=== PATIENT | female | born 1980 | race Two or more races ===

== ENCOUNTER 2018-03-01 17:59 | Emergency (ER) | payer OTHER | END 2018-03-01 19:38 | disposition home or self-care (01) | LOC: E/R 19:38 | DX: J30.2 Other seasonal allergic rhinitis (principal) | CPT/HCPCS: 99283 ==

== ENCOUNTER 2018-04-07 05:44 | Day surgery (SDC) | payer OTHER ==
[2018-04-07] MEDS ORDERED: MIDAZOLAM 1 MG/ML 2 ML INJ (07:49)
[2018-04-07] MEDS ORDERED: FENTAnyl 50 MCG/ML VIAL (07:49)
== END 2018-04-07 10:38 | disposition home or self-care (01) ==
LOC: GIL 05:44
DX: K29.50 Unspecified chronic gastritis without bleeding (principal)
CPT/HCPCS: 43239; 84703; 88305; 88312

== ENCOUNTER 2018-10-22 09:18 | Emergency (ER) | payer OTHER ==
[2018-10-22] MEDS: SOD CHLORIDE 0.9% 1,000 ML IV (10:02)
[2018-10-22] MEDS: LIDOCAINE/MYLANTA 40 ML BTL PO (10:03)
[2018-10-22] MEDS: KETOROLAC 30 MG INJ IV (10:03)
[2018-10-22] MEDS: BELLADONNA/PHENOBARBITAL TAB PO (10:03)
[2018-10-22 10:06] LABS: ADD MAN DIFF? NO
[2018-10-22 10:10] LABS: ABNORMAL IP MESSAGE 1; BASOPHIL # 0.1 10^3/ul (0.0-0.1); BASOPHILS % 0.9 % (0.0-2.0); EOSINOPHILS # 0.3 10^3/ul (0.0-0.5); EOSINOPHILS % 4.6 % (0.0-7.0); HEMATOCRIT 31.4 % (37.0-47.0); HEMOGLOBIN 9.7 g/dl (12.0-16.0); LYMPHOCYTES # 2.1 10^3/ul (0.8-2.9); MEAN CORPUSCULAR HGB CONC 30.9 g/dl (32.0-37.0); MEAN CORPUSCULAR VOLUME 64.9 fl (82.0-101.0); MONOCYTE # 0.4 10^3/ul (0.3-0.9); MONOCYTES % 6.1 % (0.0-11.0); NEUTROPHIL # 3.7 10^3/ul (1.6-7.5); NEUTROPHILS % 56.2 % (39.0-77.0); PLATELET COUNT 197 10^3/UL (140-415); RED BLOOD COUNT 4.84 10^6/ul (4.20-5.40)
[2018-10-22 10:10] LABS: WHITE BLOOD COUNT 6.5 10^3/ul (4.8-10.8)
[2018-10-22 10:23] LABS: POSITIVE DIFF @See below
[2018-10-22 10:30] LABS: INR 1.03; PROTIME 13.6 Sec (11.9-14.9); PT RATIO 1.1
[2018-10-22 10:31] LABS: PARTIAL THROMBOPLASTIN TIME 24.9 Sec (23.0-35.0)
[2018-10-22 10:37] LABS: ALANINE AMINOTRANSFERASE 28 IU/L (13-69); ALBUMIN 5.5 g/dl (3.3-4.9); ALBUMIN/GLOBULIN RATIO 2.89; ALKALINE PHOSPHATASE 61 IU/L (42-121); AMYLASE 94 U/L (11-123); ANION GAP 13 (5-13); ASPARTATE AMINO TRANSFERASE 26 IU/L (15-46); BILIRUBIN,INDIRECT 0.9 mg/dl (0-1.1); BILIRUBIN,TOTAL 0.9 mg/dl (0.2-1.3); BLOOD UREA NITROGEN 10 mg/dl (7-20); CARBON DIOXIDE 23 mmol/L (21-31); CHLORIDE 107 mmol/L (97-110); CREATININE 0.63 mg/dl (0.44-1.00); Estimated GFR > 60 mL/min (>60); GLUCOSE 94 mg/dl (70-220); LIPASE 103 U/L (23-300); POTASSIUM 4.3 mmol/L (3.5-5.1); SODIUM 143 mmol/L (135-144); TOTAL PROTEIN 7.4 g/dl (6.1-8.1)
[2018-10-22 10:49] LABS: TROPONIN-I < 0.012 ng/ml (0.000-0.120)
[2018-10-22] MEDS: IOHEXOL 300MG/ML 150 ML BTL (12:01)
[2018-10-22] MEDS: SOD CHLORIDE 0.9% 100 ML (12:01)
== END 2018-10-22 13:35 | disposition home or self-care (01) ==
LOC: E/R 09:18
DX: R10.13 Epigastric pain (principal); R40.2142 Coma scale, eyes open, spontaneous, at arrival to emergency department; R40.2362 Coma scale, best motor response, obeys commands, at arrival to emergency department; R40.2252 Coma scale, best verbal response, oriented, at arrival to emergency department
CPT/HCPCS: 74177; 80053; 81025; 82150; 83690; 84484; 85025; 85610; 85730; 96374; 99285-25

== ENCOUNTER 2019-07-08 06:13 | Emergency (ER) | payer OTHER ==
[2019-07-08] MEDS: LIDOCAINE/MYLANTA 40 ML BTL PO (07:04)
[2019-07-08] MEDS: ONDANSETRON 4 MG INJ IV (07:04)
[2019-07-08] MEDS: SOD CHLORIDE 0.9% 1,000 ML IV (07:04)
[2019-07-08] MEDS: FAMOTIDINE 20 MG INJ IV (07:04)
[2019-07-08] MEDS: BELLADONNA/PHENOBARBITAL TAB PO (07:04)
[2019-07-08 07:13] LABS: ADD MAN DIFF? NO
[2019-07-08 07:20] LABS: ABNORMAL IP MESSAGE 1; BASOPHIL # 0.1 10^3/ul (0.0-0.1); BASOPHILS % 0.7 % (0.0-2.0); EOSINOPHILS # 0.4 10^3/ul (0.0-0.5); EOSINOPHILS % 6.3 % (0.0-7.0); HEMATOCRIT 31.6 % (37.0-47.0); HEMOGLOBIN 9.6 g/dl (12.0-16.0); LYMPHOCYTES # 2.8 10^3/ul (0.8-2.9); LYMPHOCYTES % 39.6 % (15.0-51.0); MEAN CORPUSCULAR HEMOGLOBIN 20.3 pg (29.0-33.0); MEAN CORPUSCULAR HGB CONC 30.4 g/dl (32.0-37.0); MEAN CORPUSCULAR VOLUME 66.8 fl (82.0-101.0); MONOCYTE # 0.4 10^3/ul (0.3-0.9); MONOCYTES % 6.3 % (0.0-11.0); NEUTROPHIL # 3.2 10^3/ul (1.6-7.5); NEUTROPHILS % 46.8 % (39.0-77.0); PLATELET COUNT 200 10^3/UL (140-415); RED BLOOD COUNT 4.73 10^6/ul (4.20-5.40); RED CELL DISTRIBUTION WIDTH 17.1 % (11.5-14.5)
[2019-07-08 07:20] LABS: WHITE BLOOD COUNT 6.9 10^3/ul (4.8-10.8)
[2019-07-08 07:22] LABS: ADD UMIC YES; UR ASCORBIC ACID NEGATIVE (NEGATIVE); UR BACTERIA FEW /HPF (NONE SEEN); UR BILIRUBIN (Dip) NEGATIVE (NEGATIVE); UR BLOOD (Dip) 3+ mg/dL (NEGATIVE); UR CLARITY CLOUDY (CLEAR); UR COLOR RED (YELLOW); UR GLUCOSE (Dip) NEGATIVE (NEGATIVE); UR KETONES (Dip) NEGATIVE (NEGATIVE); UR LEUKOCYTE ESTERASE (Dip) TRACE Leu/ul (NEGATIVE); UR MUCUS FEW /HPF (NONE SEEN); UR NITRITE (Dip) NEGATIVE (NEGATIVE); UR RBC > 182 /HPF (0-5); UR SPECIFIC GRAVITY (Dip) 1.015 (1.003-1.030); UR SQUAMOUS EPITHELIAL CELL FEW /HPF (FEW); UR TOTAL PROTEIN (Dip) 2+ mg/dl (NEGATIVE); UR UROBILINOGEN (Dip) NEGATIVE (NEGATIVE); UR WBC > 182 /HPF (0-5)
[2019-07-08 07:36] LABS: ANION GAP 8 (5-13); Estimated GFR > 60 mL/min (>60)
[2019-07-08 07:37] LABS: ALANINE AMINOTRANSFERASE 26 IU/L (13-69); ALBUMIN 4.5 g/dl (3.3-4.9); ALBUMIN/GLOBULIN RATIO 1.45; ALKALINE PHOSPHATASE 61 IU/L (42-121); ASPARTATE AMINO TRANSFERASE 25 IU/L (15-46); BILIRUBIN,INDIRECT 0.9 mg/dl (0-1.1); BILIRUBIN,TOTAL 0.9 mg/dl (0.2-1.3); BLOOD UREA NITROGEN 9 mg/dl (7-20); CALCIUM 9.5 mg/dl (8.4-10.2); CARBON DIOXIDE 28 mmol/L (21-31); CHLORIDE 105 mmol/L (97-110); CREATININE 0.67 mg/dl (0.44-1.00); GLUCOSE 98 mg/dl (70-220); LIPASE 111 U/L (23-300); SODIUM 141 mmol/L (135-144); TOTAL PROTEIN 7.6 g/dl (6.1-8.1)
[2019-07-08 07:38] LABS: POSITIVE DIFF @See below
[2019-07-08] MEDS: CEFTRIAXONE 1 GM/50 ML (PMX) 50 ML IVPB (08:18)
== END 2019-07-08 08:48 | disposition home or self-care (01) ==
LOC: FTE 08:48
DX: N30.90 Cystitis, unspecified without hematuria (principal)
CPT/HCPCS: 36415; 76705; 80053; 81001; 81025; 83690; 85025; 96361; 96365; 96375; 99285-25